=== PATIENT | male | born 1950 | race Caucasian/White ===

== ENCOUNTER 2016-06-12 08:29 | Emergency (ER) | payer BC ==
[2016-06-12 08:44] VITALS: BP 142/88
--- NOTE | 2016-06-12 08:46 | UC ---
Ear Complaint HPI - HPI Summary HPI Summary: 65 YO MALE WITH LEFT OTALGIA X 2 DAYS HAD A HARD TIME SLEEPING DUE TO PAIN LAST PM NO F/C CHRONIC SINUS CONGESTION - History of Current Complaint Chief Complaint: UCEar Stated Complaint: EAR PAIN Time Seen by Provider: 06/12/16 08:45 Hx Obtained From: Patient Onset/Duration: Gradual Onset, Lasting Days Severity Initially: Mild Severity Currently: Mild Pain Intensity: 3 - WORSE WHEN SUPINE Pain Scale Used: 0-10 Numeric Alleviating Factors: Other (Noted In Comments) Related History: Seasonal Allergies - Allergies/Home Medications Allergies/Adverse Reactions: Allergies Allergy/AdvReac Type Severity Reaction Status Date / Time No Known Allergies Allergy Verified 06/12/16 08:38 Home Medications: Home Medications Glucosamine Hydrochloride [Glucosamine] 500 mg PO DAILY 06/12/16 [History Confirmed 06/12/16] Ibuprofen [Ibuprofen 200 MG] 200 mg PO Q6H PRN 06/12/16 [History Confirmed 06/12] Lysine 500 mg PO DAILY 06/12/16 [History Confirmed 06/12/16] Pseudoephedrine TAB* [Sudafed TAB*] 30 mg PO DAILY 06/12/16 [History Confirmed 06/12/16] PMH/Surg Hx/FS Hx/Imm Hx Previously Healthy: Yes - Surgical History Surgical History: Yes Surgery Procedure, Year, and Place: tonsillectomy, appendectomy, L inguinal hernia repair, R knee arthroscopy - Family History Known Family History: Negative: Cardiac Disease, Hypertension, Diabetes - Social History Alcohol Use: None Substance Use Type: None Smoking Status (MU): Never Smoked Tobacco - Immunization History Most Recent Influenza Vaccination: fall 2015 Review of Systems Constitutional: Negative Skin: Negative Eyes: Negative ENT: Ear Ache, Nasal Discharge Respiratory: Negative Cardiovascular: Negative Gastrointestinal: Negative Genitourinary: Negative Motor: Negative Neurovascular: Negative Musculoskeletal: Negative Neurological: Negative Psychological: Negative All Other Systems Reviewed And Are Negative: Yes Physical Exam Triage Information Reviewed: Yes Appearance: Well-Appearing, No Pain Distress, Well-Nourished Vital Signs: Initial Vital Signs Temp 97.4 F 06/12/16 08:41 Pulse 74 06/12/16 08:41 Resp 16 06/12/16 08:41 BP 142/88 06/12/16 08:41 Pulse Ox 100 06/12/16 08:41 Vital Signs Reviewed: Yes Eyes: Positive: Conjunctiva Clear ENT: Positive: Hearing grossly normal, Nasal congestion, TMs normal - LWFT, TM bulging, TM red - RIGHT. Negative: Nasal drainage, Tonsillar exudate, Trismus Neck: Positive: Supple, Nontender Respiratory: Positive: Lungs clear, Normal breath sounds, No respiratory distress, No accessory muscle use Cardiovascular: Positive: RRR, No Murmur Musculoskeletal: Positive: ROM Intact, No Edema Neurological Exam: Normal Neurological: Positive: Alert Psychological Exam: Normal Skin Exam: Normal Ear Complaint Course/Dx - Differential Dx/Diagnosis Provider Diagnoses: LEFT OTITIS MEDIA Discharge - Discharge Plan Condition: Stable Disposition: HOME Prescriptions: Amoxicillin (*) [Amoxicillin 875 MG (*)] 875 mg PO BID #20 tab Patient Education Materials: Otitis Media (ED) Referrals: Jarrell Harris MD [Primary Care Provider] - 2 Weeks (YOUR BP TODAY WAS 142/ 88...I SUSPECT IT HAS RUN UP DUE TO DISCOMFORT) Additional Instructions: TYLENOL IF NEEDED FOR PAIN
== END 2016-06-12 08:59 | disposition home or self-care (01) ==
LOC: UCEAST 08:29
DX: H66.92 Otitis media, unspecified, left ear (principal)
CPT/HCPCS: 99212; G0463